=== PATIENT | male | born 1955 | race Caucasian/White ===

== ENCOUNTER 2017-07-17 06:46 | Emergency (ER) | payer BC ==
[~2017-07-17] VITALS: Ht 182.8 cm; Wt 90.7 kg
[2017-07-17 07:04] LABS: BASO # 0.1 10*3/uL (0.0-0.1); BASO % 0.7 % (0.0-1.0); EOS # 0.1 10*3/uL (0.0-0.4); HEMATOCRIT 47.5 % (42.0-52.0); HEMOGLOBIN 15.7 g/dl (14.0-18.0); LYMPH # 3.4 10*3/uL (1.3-4.4); LYMPH % 35.1 % (27.0-41.0); MEAN CELL VOLUME 93.1 fl (80.0-94.0); MEAN CORPUSCULAR HGB 30.8 pg (27.0-31.0); MEAN CORPUSCULAR HGB CONC 33.1 g/dl (33.0-37.0); MEAN PLATELET VOLUME 10.8 fl (9.6-12.3); MONO # 0.7 10*3/uL (0.1-1.0); MONO % 7.4 % (3.0-9.0); NEUT # 5.4 10*3/uL (2.3-7.9); NEUT % 55.6 % (47.0-73.0); PLATELET COUNT AUTOMATED 296 10*3/uL (130-400); RED CELL DISTRI WIDTH 11.9 % (0-14.5); WHITE BLOOD COUNT 9.7 10*3/uL (4.8-10.8)
[2017-07-17 07:13] LABS: ACT PARTIAL THROMBO TIME 22.9 SECONDS (20.8-31.5)
[2017-07-17 07:38] LABS: ALBUMIN 3.8 gm/dl (3.1-4.5); ALKALINE PHOSPHATASE 64 U/L (45-117); BUN 10 mg/dl (7-24); CHLORIDE 103 mmol/L (98-107); CREATININE 1.17 mg/dL (0.70-1.30); SGOT/AST 23 IU/L (3-35); SGPT/ALT 29 U/L (12-78); SODIUM 139 mmol/L (136-145); TOTAL PROTEIN 6.9 gm/dL (6.4-8.2)
== END 2017-07-17 07:39 | disposition short-term general hospital (02) ==
LOC: ED 06:46
PROVIDERS: Student in an Organized Health Care Education/Training Program
DX: I21.09 ST elevation (STEMI) myocardial infarction involving other coronary artery of anterior wall (principal); E78.00 Pure hypercholesterolemia, unspecified; Z87.891 Personal history of nicotine dependence

== ENCOUNTER 2017-09-05 14:26 | Inpatient (IN) | payer BC ==
[~2017-09-05] VITALS: Ht 182.9 cm; Wt 98.9 kg
[2017-09-05] VITALS (7 sets, daily range): BP systolic 104–132; BP diastolic 64–75
[2017-09-05] MEDS ORDERED: IMDUR SA30 MG PO (14:56)
[2017-09-05] MEDS ORDERED: LISINOPRIL10 M1 PO (14:56)
[2017-09-05] MEDS ORDERED: MOMETASONE FURO17 GM NAS (14:56)
[2017-09-05] MEDS ORDERED: BRILINTA90 M1 PO (14:57)
[2017-09-05] MEDS ORDERED: TOPROL XL25 MG PO (14:57)
[2017-09-05 14:58] LABS: BASO % 0.4 % (0.0-1.0); EOS % 0.3 % (1.0-4.0); HEMATOCRIT 42.8 % (42.0-52.0); HEMOGLOBIN 14.5 g/dl (14.0-18.0); LYMPH # 2.2 10*3/uL (1.3-4.4); LYMPH % 21.9 % (27.0-41.0); MEAN CELL VOLUME 92.2 fl (80.0-94.0); MEAN CORPUSCULAR HGB 31.3 pg (27.0-31.0); MEAN CORPUSCULAR HGB CONC 33.9 g/dl (33.0-37.0); MEAN PLATELET VOLUME 11.7 fl (9.6-12.3); MONO # 0.9 10*3/uL (0.1-1.0); MONO % 8.8 % (3.0-9.0); NEUT % 68.4 % (47.0-73.0); PLATELET COUNT AUTOMATED 247 10*3/uL (130-400); RED BLOOD COUNT 4.64 10*6/uL (4.50-5.90); RED CELL DISTRI WIDTH 12.3 % (0-14.5); WHITE BLOOD COUNT 10.2 10*3/uL (4.8-10.8)
[2017-09-05] MEDS ORDERED: ROSUVASTATIN CA20 MG PO (14:58)
[2017-09-05] MEDS ORDERED: ZYRTEC10 M3 PO (15:01)
[2017-09-05] MEDS ORDERED: ASPIRIN CHEWABL81 MG PO (15:01)
[2017-09-05 15:21] LABS: ALBUMIN 4.1 gm/dl (3.1-4.5); ALKALINE PHOSPHATASE 62 U/L (45-117); BUN 14 mg/dl (7-24); CHLORIDE 104 mmol/L (98-107); CREATININE 1.17 mg/dL (0.70-1.30); POTASSIUM 4.4 mmol/L (3.5-5.1); SGOT/AST 20 IU/L (3-35); SGPT/ALT 27 U/L (12-78); SODIUM 136 mmol/L (136-145); TOTAL PROTEIN 7.4 gm/dL (6.4-8.2)
[2017-09-05 15:22] LABS: TROPONIN I < 0.015 ng/ml (<0.045)
[2017-09-06] VITALS: BP 134/67
[2017-09-06 07:06] LABS: BASO # 0.1 10*3/uL (0.0-0.1); BASO % 0.7 % (0.0-1.0); EOS # 0.1 10*3/uL (0.0-0.4); HEMATOCRIT 47.4 % (42.0-52.0); HEMOGLOBIN 15.4 g/dl (14.0-18.0); LYMPH # 3.1 10*3/uL (1.3-4.4); MEAN CELL VOLUME 93.7 fl (80.0-94.0); MEAN CORPUSCULAR HGB 30.4 pg (27.0-31.0); MEAN CORPUSCULAR HGB CONC 32.5 g/dl (33.0-37.0); MEAN PLATELET VOLUME 11.9 fl (9.6-12.3); MONO # 0.9 10*3/uL (0.1-1.0); MONO % 8.8 % (3.0-9.0); NEUT # 6.1 10*3/uL (2.3-7.9); NEUT % 59.1 % (47.0-73.0); PLATELET COUNT AUTOMATED 246 10*3/uL (130-400); RED BLOOD COUNT 5.06 10*6/uL (4.50-5.90); RED CELL DISTRI WIDTH 12.4 % (0-14.5); WHITE BLOOD COUNT 10.3 10*3/uL (4.8-10.8)
[2017-09-06 07:17] LABS: ALBUMIN 4.1 gm/dl (3.1-4.5); BUN 12 mg/dl (7-24); CHLORIDE 104 mmol/L (98-107); CHOLESTEROL 124 mg/dL (<200); CREATININE 1.13 mg/dL (0.70-1.30); HDL CHOLESTEROL 42 mg/dl (40-60); LDL CHOLESTEROL 58 mg/dL (9-159); PHOSPHOROUS 3.5 mg/dL (2.5-4.9); POTASSIUM 4.3 mmol/L (3.5-5.1); SGOT/AST 20 IU/L (3-35); SGPT/ALT 29 U/L (12-78); SODIUM 137 mmol/L (136-145); TOTAL PROTEIN 7.6 gm/dL (6.4-8.2); TRIGLYCERIDES 120 mg/dl (<150); VLDL CHOLESTEROL 24 mg/dL (6-40)
[2017-09-06 07:23] LABS: ALKALINE PHOSPHATASE 65 U/L (45-117); FREE T4 0.96 ng/dl (0.76-1.46)
[2017-09-06 08:00] VITALS: BP 136/59
[2017-09-06 09:56] LABS: VITAMIN D, 25-HYDROXY 28.6 ng/mL (30-100)
[2017-09-06 12:00] VITALS: BP 106/60
[2017-09-06 16:00] VITALS: BP 114/69
[2017-09-06] MEDS ORDERED: METOPROLOL SUCC25 M2 PO (16:34)
[2017-09-06] MEDS ORDERED: LOSARTAN POTASS25 M1 PO (16:34)
== END 2017-09-06 17:30 | disposition home or self-care (01) | DRG 313 ==
LOC: ED 14:26 → 5E 16:17 → EDHOLD 16:17 → 5E 17:16
PROVIDERS: Family Medicine; Registered Nurse
DX: R07.9 Chest pain, unspecified (principal); I25.118 Atherosclerotic heart disease of native coronary artery with other forms of angina pectoris; I95.9 Hypotension, unspecified; I25.5 Ischemic cardiomyopathy; E78.00 Pure hypercholesterolemia, unspecified; I10 Essential (primary) hypertension; R73.9 Hyperglycemia, unspecified; E78.5 Hyperlipidemia, unspecified; Z95.5 Presence of coronary angioplasty implant and graft; Z82.3 Family history of stroke; Z82.49 Family history of ischemic heart disease and other diseases of the circulatory system; Z79.82 Long term (current) use of aspirin; Z79.899 Other long term (current) drug therapy; Z88.8 Allergy status to other drugs, medicaments and biological substances; Z91.018 Allergy to other foods

== ENCOUNTER → 2019-04-12 | Outpatient (CLI) | payer BC ==
[~2019-04-12] MED LIST: ASPIRIN CHEWABL81 MG PO; BRILINTA90 M1 PO; IMDUR SA30 MG PO; LISINOPRIL10 M1 PO; LOSARTAN POTASS25 M1 PO; METOPROLOL SUCC25 M2 PO; MOMETASONE FURO17 GM NAS; ROSUVASTATIN CA20 MG PO; TOPROL XL25 MG PO; ZYRTEC10 M3 PO
== END | disposition home or self-care (01) ==
LOC: RAD 10:08
DX: M47.812 Spondylosis without myelopathy or radiculopathy, cervical region (principal)

== ENCOUNTER 2019-07-01 20:13 | Inpatient (IN) | payer BC ==
[~2019-07-01] VITALS: Ht 182.8 cm; Wt 102.6 kg
[2019-07-01 20:22] VITALS: BP 125/53
[2019-07-01 20:31] LABS: BASO # 0.1 10*3/uL (0.0-0.1); BASO % 0.7 % (0.0-1.0); EOS # 0.1 10*3/uL (0.0-0.4); HEMATOCRIT 44.5 % (42.0-52.0); HEMOGLOBIN 14.6 g/dl (14.0-18.0); MEAN CELL VOLUME 95.9 fl (80.0-94.0); MEAN CORPUSCULAR HGB 31.5 pg (27.0-31.0); MEAN CORPUSCULAR HGB CONC 32.8 g/dl (33.0-37.0); MEAN PLATELET VOLUME 11.3 fl (9.6-12.3); MONO % 8.4 % (3.0-9.0); NEUT # 6.5 10*3/uL (2.3-7.9); NEUT % 55.5 % (47.0-73.0); PLATELET COUNT AUTOMATED 267 10*3/uL (130-400); RED BLOOD COUNT 4.64 10*6/uL (4.50-5.90); RED CELL DISTRI WIDTH 12.2 % (0-14.5); WHITE BLOOD COUNT 11.7 10*3/uL (4.8-10.8)
[2019-07-01 20:42] LABS: ACT PARTIAL THROMBO TIME 24.8 SECONDS (20.0-32.1)
[2019-07-01 21:17] LABS: ALBUMIN 3.5 gm/dl (3.1-4.5); ALKALINE PHOSPHATASE 67 U/L (45-117); BUN 17 mg/dl (7-24); CHLORIDE 108 mmol/L (98-107); CREATININE 1.17 mg/dL (0.70-1.30); POTASSIUM 3.8 mmol/L (3.5-5.1); SGOT/AST 20 IU/L (3-35); SGPT/ALT 34 U/L (12-78); SODIUM 142 mmol/L (136-145); TOTAL PROTEIN 6.5 gm/dL (6.4-8.2)
[2019-07-01 21:19] LABS: TROPONIN I < 0.015 ng/ml (<0.045)
[2019-07-02] VITALS (10 sets, daily range): BP systolic 114–148; BP diastolic 55–74
--- NOTE | 2019-07-02 01:42 | NUR ---
PT PROVIDED A BLANKET AND WAS TOLD HE WOULD BE IN THE ER FOR THE REMAINDER OF THE NIGHT.
--- NOTE | 2019-07-02 06:18 | NUR ---
PT UP TO USE RESTROOM. IN NO ACUTE DISTRESS
[2019-07-02 06:28] LABS: BASO # 0.1 10*3/uL (0.0-0.1); BASO % 0.6 % (0.0-1.0); EOS # 0.2 10*3/uL (0.0-0.4); EOS % 1.5 % (1.0-4.0); HEMOGLOBIN 13.8 g/dl (14.0-18.0); LYMPH # 4.4 10*3/uL (1.3-4.4); LYMPH % 40.9 % (27.0-41.0); MEAN CELL VOLUME 95.8 fl (80.0-94.0); MEAN CORPUSCULAR HGB 30.7 pg (27.0-31.0); MEAN CORPUSCULAR HGB CONC 32.1 g/dl (33.0-37.0); MEAN PLATELET VOLUME 11.5 fl (9.6-12.3); MONO # 0.9 10*3/uL (0.1-1.0); MONO % 8.3 % (3.0-9.0); NEUT # 5.2 10*3/uL (2.3-7.9); NEUT % 48.2 % (47.0-73.0); PLATELET COUNT AUTOMATED 240 10*3/uL (130-400); RED BLOOD COUNT 4.49 10*6/uL (4.50-5.90); RED CELL DISTRI WIDTH 12.1 % (0-14.5); WHITE BLOOD COUNT 10.7 10*3/uL (4.8-10.8)
[2019-07-02 06:45] LABS: BUN 14 mg/dl (7-24); CHLORIDE 110 mmol/L (98-107); CHOLESTEROL 98 mg/dL (<200); CREATININE 1.09 mg/dL (0.70-1.30); HDL CHOLESTEROL 39 mg/dl (40-60); LDL CHOLESTEROL 43 mg/dL (9-159); PHOSPHOROUS 3.6 mg/dL (2.5-4.9); SODIUM 142 mmol/L (136-145); TRIGLYCERIDES 78 mg/dl (<150); VLDL CHOLESTEROL 16 mg/dL (6-40)
[2019-07-02 07:02] LABS: POTASSIUM 4.8 mmol/L (3.5-5.1)
--- NOTE | 2019-07-02 07:30 | NUR ---
PT AWAKE IN BED AT THIS TIME. PT DENIES PAIN OR DISCOMFORT. WILL CONTINUE TO MONITOR.
--- NOTE | 2019-07-02 07:50 | NUR ---
DR BARRERA ANSWERING SERVICE NOTIFIED OF CONSULT AT THIS TIME. PER ANSWERING SERVICE MESSAGE WILL BE PROVIDED TO ADMITTING COORDINATOR THAT IS COVERING. DR NOLAN NOTIFIED OF CONSULT AT THIS TIME. NO NEW ORDERS RECEIVED.
--- NOTE | 2019-07-02 08:05 | NUR ---
RESIDENT FOR CARDIOLOGY IN ROOM AT THIS TIME ASSESSING PATIENT.
[2019-07-02] MEDS ORDERED: TOPROL XL50 M1 PO (10:23)
--- NOTE | 2019-07-02 10:33 | NUR ---
[facility] , under the services of STEPHANIE Ornelas DO with a diagnosis of CHEST PAIN. Chief complaint is CHEST PAIN. Patient arrived via bed from ER. Monitor applied. Initial assessment completed. Vital signs taken and recorded. STEPHANIE ORNELAS DO notified of admission to the unit. Orders received. See assessment for past medical history, medications and allergies. Patient and/or family oriented to unit. [facility] visitation policy reviewed. Clothing/patient valuable form completed. ARNALDO CAMARGO
--- NOTE | 2019-07-02 14:02 | NUR ---
NORCO GIVEN FOR C/O CHEST PAIN. RATES 5/10 ON PAIN SCALE. WILL MONITOR.
--- NOTE | 2019-07-02 15:10 | NUR ---
TERI EFFECTIVE PER PT.
--- NOTE | 2019-07-02 22:05 | NUR ---
MEDICATED WITH NORCO FOR C/O CHEST PAIN RATED A 5/10. PT. IS RESTING COMFORTABLY IN BED; NO DISTRESS NOTED. NOT SOB NOR DIAPHORETIC. WILL CONTINUE TO MONITOR. CALL LIGHT WITHIN REACH.
--- NOTE | 2019-07-02 22:15 | NUR ---
PT. STATES THAT HE CANNOT TAKE LIPITOR. IT CAUSES HIM TO HAVE CHEST PAIN. CALLED PHARMACY & PHARMACIST STATED THAT HE NEEDS TO BRING IN HIS CRESTOR FROM HOME.
[2019-07-03] VITALS: BP 142/63
--- NOTE | 2019-07-03 03:00 | NUR ---
POPCORN MACHINE OPERATOR CALLED TO STATE THAT PT'S MONITOR WAS OFF. UPON ENTERING ROOM PATIENT HAS HIS MONITOR OFF, O2 OFF & GOWN OFF & ATTEMPTING TO GET OUT OF BED TO GET DRESSED TO GO HOME. GOWN, 02 & MONITOR REAPPLIED. PT. ASSISTED BACK TO BED & BED ALARM PUT ON.
--- NOTE | 2019-07-03 03:29 | NUR ---
PA ASKED IF PATIENT WANTED TO GET WASHED UP FOR STRESS TEST THIS MORNING. PT. REFUSED.
--- NOTE | 2019-07-03 06:00 | NUR ---
RESTING IN BED WITH EYES CLOSED. RESPIRATIONS EASY & UNLABORED ON ROOM AIR. CALL LIGHT REMAINS WITHIN REACH.
--- NOTE | 2019-07-03 08:00 | NUR ---
Patient resting quietly with no c/o discomfort. Respirations easy and regular. Vital signs stable. No overt distress. JOSEPH AARON
--- NOTE | 2019-07-03 09:31 | NUR ---
INFORMED SIGNED CONSENT OBTAINED FOR CGXT WITH DR TONEY. RESTING EKG NSR HR 69 BP 1412/78 IN SUPINE POSITION, STANDING HR 72 BP 122/66. PT COMPLETED 7:00 OF A ANUPAMA PROTOCOL WITH PT COMPLETING 1:00 OF STAGE III AT 3.4 MPH AND A 14% GRADE. NO ARRHYTHMIA NOTED. PT HAD NON DIAGNOSTIC ST CHANGES IN II III AVF V4-V6. PT REACHED A PEAK HR OF 138 WHICH REPRESENTS 88% OF PREDICTED MAXIMUM AND A PEAK BP OF 168/72. TEST TERMINATE DUE TO FATIGUE. LAST RECOVERY HR OF 88 BP 130/74. PT IN STABLE CONDITION, AWAITING NUCLEAR IMAGES.
--- NOTE | 2019-07-03 11:52 | NUR ---
MEDICATED WITH PO NORCO ORDERED PER PT REQUEST FOR C/O MIDSTERNAL CHEST PAIN RATED 5/10.
[2019-07-03 12:00] VITALS: BP 112/61
--- NOTE | 2019-07-03 13:42 | NUR ---
Broomcorn Seeder in to talk to patient. Patient states lives at home with . There are 3 steps in the home. Physician: lex braga [facility]acy: [facility] [place] [facility]: none Patient's level of ADLs: INDEPENDENT Patient has working utilities: all working\ DME: none Follow-up physician's appointment after d/c: will be made by hospitalist nurse director upon discharge Does patient want to access PORTAL?: no Discharge plan discussed with patient, he lives at home with , he is independent in adls and ambulation, he states he will return home when medically stable and denies any home needs. YUNIEL REYES
[2019-07-03] MEDS ORDERED: IBU800 MG PO (14:32)
--- NOTE | 2019-07-03 14:49 | NUR ---
MEDICATION EFFECTIVE FOR PAIN.
--- NOTE | 2019-07-03 16:16 | NUR ---
PT LEAVING IN CARE OF SPOUSE, AMBULATORY.
== END 2019-07-03 16:19 | disposition home or self-care (01) | DRG 206 ==
LOC: ED 20:13 → 4E 22:42 → EDHOLD 22:42 → 4E 07-02 09:09
PROVIDERS: Emergency Medicine; Student in an Organized Health Care Education/Training Program; ADMIT Internal Medicine
PROC: 3E073KZ Introduction of Other Diagnostic Substance into Coronary Artery, Percutaneous Approach (ICD-10-PCS; principal; 2019-07-03)
PROC: 4A02XM4 Measurement of Cardiac Total Activity, External Approach (ICD-10-PCS; principal; 2019-07-03)
DX: M94.0 Chondrocostal junction syndrome [Tietze] (principal); D72.829 Elevated white blood cell count, unspecified; D75.89 Other specified diseases of blood and blood-forming organs; E87.8 Other disorders of electrolyte and fluid balance, not elsewhere classified; E83.41 Hypermagnesemia; E78.00 Pure hypercholesterolemia, unspecified; I10 Essential (primary) hypertension; I25.10 Atherosclerotic heart disease of native coronary artery without angina pectoris; R73.9 Hyperglycemia, unspecified; D53.9 Nutritional anemia, unspecified; E53.8 Deficiency of other specified B group vitamins; J84.10 Pulmonary fibrosis, unspecified; E78.1 Pure hyperglyceridemia; K22.9 Disease of esophagus, unspecified; K57.90 Diverticulosis of intestine, part unspecified, without perforation or abscess without bleeding; I34.0 Nonrheumatic mitral (valve) insufficiency; E66.9 Obesity, unspecified; E78.5 Hyperlipidemia, unspecified; I25.2 Old myocardial infarction; Z95.5 Presence of coronary angioplasty implant and graft; Z91.011 Allergy to milk products; Z91.018 Allergy to other foods; Z91.09 Other allergy status, other than to drugs and biological substances; Z87.891 Personal history of nicotine dependence; Z82.49 Family history of ischemic heart disease and other diseases of the circulatory system; Z82.3 Family history of stroke; Z79.899 Other long term (current) drug therapy; Z79.82 Long term (current) use of aspirin; Z68.30 Body mass index [BMI] 30.0-30.9, adult

== ENCOUNTER → 2020-09-18 | Outpatient (CLI) | payer BC ==
[~2020-09-18] MED LIST changes: +IBU800 MG PO; +TOPROL XL50 M1 PO
== END | disposition home or self-care (01) ==
LOC: COVID19 10:46
PROVIDERS: ATTEND Internal Medicine
DX: Z20.822 Contact with and (suspected) exposure to COVID-19 (principal)

== ENCOUNTER → 2022-08-30 | Outpatient (CLI) | payer MEDICARE | END | disposition home or self-care (01) | LOC: RAD 13:46 | PROVIDERS: ATTEND Chiropractor Orthopedic | DX: M47.816 Spondylosis without myelopathy or radiculopathy, lumbar region (principal); I70.0 Atherosclerosis of aorta; M51.36 Other intervertebral disc degeneration, lumbar region; M25.78 Osteophyte, vertebrae ==

== ENCOUNTER → 2022-10-12 | Outpatient (CLI) | payer MEDICARE ==
[2022-10-12 11:21] LABS: BASO % 0.6 % (0.0-1.0); EOS # 0.1 10*3/uL (0.0-0.4); EOS % 1.4 % (1.0-4.0); HEMATOCRIT 44.3 % (42.0-52.0); LYMPH # 1.9 10*3/uL (1.3-4.4); LYMPH % 26.5 % (27.0-41.0); MEAN CELL VOLUME 97.6 fl (80.0-94.0); MEAN CORPUSCULAR HGB 31.3 pg (27.0-31.0); MEAN CORPUSCULAR HGB CONC 32.1 g/dl (33.0-37.0); MEAN PLATELET VOLUME 11.4 fl (9.6-12.3); MONO # 0.6 10*3/uL (0.1-1.0); MONO % 8.6 % (3.0-9.0); NEUT # 4.5 10*3/uL (2.3-7.9); NEUT % 62.6 % (47.0-73.0); PLATELET COUNT AUTOMATED 217 10*3/uL (130-400); RED BLOOD COUNT 4.54 10*6/uL (4.50-5.90); RED CELL DISTRI WIDTH 11.9 % (0-14.5); WHITE BLOOD COUNT 7.2 10*3/uL (4.8-10.8)
[2022-10-12 11:48] LABS: ALKALINE PHOSPHATASE 64 U/L (46-116); BUN 10 mg/dl (9-23); CHLORIDE 106 mmol/L (98-107); CHOLESTEROL 115 mg/dL (<200); LDL CHOLESTEROL 60 mg/dL (9-159); POTASSIUM 4.7 mmol/L (3.4-5.1); SGPT/ALT 27 U/L (10-49); THYROID STIM HORMONE (HS) 3.009 uIU/ml (0.550-4.780); TOTAL PROTEIN 7.2 gm/dL (6.0-8.0); TRIGLYCERIDES 84 mg/dl (<150)
== END | disposition home or self-care (01) ==
LOC: LAB 10:47
PROVIDERS: ATTEND Family Medicine
DX: Z12.5 Encounter for screening for malignant neoplasm of prostate (principal); I25.10 Atherosclerotic heart disease of native coronary artery without angina pectoris; E78.5 Hyperlipidemia, unspecified; I10 Essential (primary) hypertension; I48.0 Paroxysmal atrial fibrillation; R73.03 Prediabetes

== ENCOUNTER 2024-03-14 15:09 | Emergency (ER) | payer MEDICARE ==
[~2024-03-14] VITALS: Wt 97.5 kg
[2024-03-14 15:48] LABS: BASO % 0.5 % (0.0-1.0); EOS # 0.1 10*3/uL (0.0-0.4); EOS % 1.1 % (1.0-4.0); HEMATOCRIT 41.3 % (42.0-52.0); LYMPH % 23.9 % (27.0-41.0); MEAN CELL VOLUME 96.5 fl (80.0-94.0); MEAN CORPUSCULAR HGB 31.5 pg (27.0-31.0); MEAN CORPUSCULAR HGB CONC 32.7 g/dl (33.0-37.0); MEAN PLATELET VOLUME 11.1 fl (9.6-12.3); MONO # 0.7 10*3/uL (0.1-1.0); MONO % 7.9 % (3.0-9.0); NEUT # 5.6 10*3/uL (2.3-7.9); NEUT % 66.5 % (47.0-73.0); PLATELET COUNT AUTOMATED 207 10*3/uL (130-400); RED BLOOD COUNT 4.28 10*6/uL (4.50-5.90); RED CELL DISTRI WIDTH 11.9 % (0-14.5); WHITE BLOOD COUNT 8.4 10*3/uL (4.8-10.8)
[2024-03-14 15:59] LABS: ACT PARTIAL THROMBO TIME 26.6 SECONDS (20.0-32.1)
[2024-03-14 16:12] LABS: ALKALINE PHOSPHATASE 62 U/L (46-116); BUN 11 mg/dl (9-23); CHLORIDE 105 mmol/L (98-107); POTASSIUM 3.9 mmol/L (3.4-5.1); SGPT/ALT 20 U/L (5-49); TOTAL PROTEIN 6.6 gm/dL (6.0-8.0)
[2024-03-14] MEDS ORDERED: ELIQUIS5 M1 PO (16:33)
[2024-03-14] MEDS ORDERED: CLARITIN10 MG PO (16:34)
== END 2024-03-14 18:53 | disposition home or self-care (01) ==
LOC: ED 15:09
PROVIDERS: Emergency Medicine
DX: R07.89 Other chest pain (principal); R06.02 Shortness of breath; E78.00 Pure hypercholesterolemia, unspecified; Z88.8 Allergy status to other drugs, medicaments and biological substances; Z91.018 Allergy to other foods; Z98.890 Other specified postprocedural states; Z95.5 Presence of coronary angioplasty implant and graft; Z87.891 Personal history of nicotine dependence

== ENCOUNTER → 2024-03-21 | Outpatient (CLI) | payer MEDICARE ==
[~2024-03-21] MED LIST changes: +CLARITIN10 MG PO; +ELIQUIS5 M1 PO; +Regadenoson 0.4 MG/5 ML SYR IV ONE; +Technetium Tc 99M Tetrofosmi 0.23 MG KIT IJ SCH
== END | disposition home or self-care (01) ==
LOC: CARD 01:31
PROVIDERS: ATTEND Internal Medicine Cardiovascular Disease
DX: R07.9 Chest pain, unspecified (principal)